=== PATIENT | male | born 1970 ===

== ENCOUNTER 2022-12-16 01:48 | Emergency (ER) | payer BC ==
[2022-12-16] MEDS ORDERED: Silver Sulfadiazine 1% Crm 20 GM Tube TOP ONE (01:54)
== END 2022-12-16 02:50 | disposition home or self-care (01) ==
LOC: LL.ED 01:48
DX: T20.16XA Burn of first degree of forehead and cheek, initial encounter (principal); T22.111A Burn of first degree of right forearm, initial encounter; Z88.0 Allergy status to penicillin; X16.XXXA Contact with hot heating appliances, radiators and pipes, initial encounter; Y99.0 Civilian activity done for income or pay
CPT/HCPCS: 16000; 99283; A9270